=== PATIENT | male | born 1960 | race Caucasian/White ===

== ENCOUNTER 2020-06-09 06:56 | Day surgery (SDC) | payer BC ==
[2020-06-04 13:42] VITALS: BMI 40.8
[~2020-06-09 06:56] MED LIST: LACTATED RINGERS 1,000 ML IV SCH
[2020-06-09 07:37] VITALS: RESP 16; TEMP 98.4
[2020-06-09] MEDS ORDERED: LIDOCAINE 1% (10MG/ML) FOR IV START INTRADERMA ONE (07:47)
[2020-06-09 08:02] LABS: Glucose,Whole Blood 84 mg/dL (75-99)
[2020-06-09] MEDS ORDERED: PROPOFOL 10 MG/ML 20 ML VIAL IV ONE (08:08)
--- NOTE | 2020-06-09 08:27 | P.PCN ---
Date of Procedure: 06/09/20 Procedure(s) Performed: BRIEF HISTORY: Patient is a 60-year-old pleasant white male scheduled for an elective colonoscopy as a part of evaluation of prior history of colon polyps. Last colonoscopy was 5 years ago. PROCEDURE PERFORMED: Colonoscopy with snare polypectomy. PREOPERATIVE DIAGNOSIS: History of colon polyps. IV sedation per Anesthesia. PROCEDURE: After informed consent was obtained, the patient, was brought into the endoscopy unit. IV sedation was administered by Anesthesia under continuous monitoring. Digital rectal examination was normal. Initially the Olympus CF-160 flexible video colonoscope was then inserted in the rectum, gradually advanced into the cecum without any difficulty. Careful examination was performed as the scope was gradually being withdrawn. Ileocecal valve and the appendiceal orifice were visualized and appeared normal. Prep was excellent. Mucosa of the cecum, had 2 polyps measuring 5 mm and 1 cm in size both of which removed by snare polypectomy. In the ascending colon there was a 3-4 mm sessile polyp removed by snare polypectomy. In the hepatic flexure there was a 3 mm polyp removed by snare polypectomy. Rest of the ascending colon, transverse colon, descending colon, sigmoid colon, and rectum appeared normal. Retroflexion was performed in the rectum and no lesions were seen. The patient tolerated the procedure well. IMPRESSION: 1 cm and 5 mm cecal polyp status post polypectomy 3-4 mm sessile ascending colon polyp status post polypectomy 3 mm hepatic flexure polyp status post polypectomy RECOMMENDATIONS: Findings of this examination were discussed with the patient as well as his family. He was advised to follow with the biopsy results. If the biopsy shows an adenoma he can have a repeat colonoscopy in 3-5 years..
[2020-06-09 08:44] VITALS: BP 130/77; PULSE 71
== END 2020-06-09 09:05 | disposition home or self-care (01) ==
LOC: ORWHC2ENDO 06:56
PROVIDERS: ATTEND Internal Medicine Gastroenterology
DX: Z12.11 Encounter for screening for malignant neoplasm of colon (principal); D12.2 Benign neoplasm of ascending colon; D12.3 Benign neoplasm of transverse colon; G47.33 Obstructive sleep apnea (adult) (pediatric); Z99.89 Dependence on other enabling machines and devices; Z87.442 Personal history of urinary calculi; Z97.2 Presence of dental prosthetic device (complete) (partial); Z86.010 Personal history of colon polyps; Z79.899 Other long term (current) drug therapy
CPT/HCPCS: 88305; 45385; J2704

== ENCOUNTER → 2021-08-11 | Outpatient (CLI) | payer BC ==
[2021-08-11 23:02] LABS: Basophils # (A) 0.03 X 10*3/uL (0.00-0.10); Basophils % (A) 0.5 %; Eosinophils # (A) 0.15 X 10*3/uL (0.04-0.35); Eosinophils % (A) 2.4 %; HCT 46.8 % (39.6-50.0); HGB 15.4 g/dL (13.0-17.0); Immature Grans, Automated 0.5 %; Lymphocytes # (A) 2.24 X 10*3/uL (0.90-5.00); Lymphocytes % (A) 36.5 %; MCH 30.4 pg (27.0-32.0); MCHC 32.9 g/dL (32.0-37.0); MCV 92.3 fL (80.0-97.0); Mean Platelet Volume 10.4 fL (9.5-12.2); Monocytes # (A) 0.49 X 10*3/uL (0.20-1.00); NRBC Per 100 WBC 0 /100 WBCS (0.0-0.0); Neutrophils % (A) 52.1 %; Platelet Count 237 X 10*3/uL (140-440); RBC 5.07 X 10*6/uL (4.40-5.60); WBC 6.14 X 10*3/uL (4.50-10.00)
[2021-08-11 23:26] LABS: African American GFR (CKD) 112.2 (60.0-200.0); Anion Gap 10.3 mmol/L (10.00-18.00); BUN/Creat Ratio 23.45 Ratio (12.00-20.00); Blood Urea Nitrogen 18.9 mg/dL (9.0-27.0); Calcium 9.2 mg/dL (8.7-10.3); Carbon Dioxide 23.4 mmol/L (20.0-27.5); Non-African American GFR(CKD) 96.8 (60.0-200.0); Potassium 4.9 mmol/L (3.5-5.5)
== END | disposition home or self-care (01) ==
LOC: LABPAT 08:30
PROVIDERS: ATTEND Orthopaedic Surgery
DX: Z01.812 Encounter for preprocedural laboratory examination (principal); M23.92 Unspecified internal derangement of left knee
CPT/HCPCS: 36415; 80048; 85025; 93005

== ENCOUNTER → 2021-08-26 | Day surgery (SDC) | payer BC ==
[2021-08-24 11:46] VITALS: BMI 40.1
--- NOTE | 2021-08-25 09:12 | HP ---
HISTORY AND PHYSICAL CHIEF COMPLAINT: Left knee pain. 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 He notes persistent pain and swelling along with intermittent locking and giving way. He has tried medications in addition to an injection, with only partial temporary relief. He notes daily pain that limits him. PAST MEDICAL HISTORY: Significant for hypertension, eye disease, anxiety, arthritis, renal disease, diabetes. PAST SURGICAL HISTORY: Significant for eye surgery, hernia repair and appendectomy. CURRENT MEDICATIONS: Valsartan. ALLERGIES: HE DENIES DRUG ALLERGIES. REVIEW OF SYSTEMS: Sixteen-point review of systems otherwise reviewed and is noncontributory. SOCIAL HISTORY: Negative. FAMILY HISTORY: Significant for diabetes and cancers. PHYSICAL EXAMINATION: On examination, patient is approximately 5 feet 9 inches, 282 pounds of endomorphic habitus. HEENT exam is nonfocal. Neck is supple. He has painless passive motion of his left hip. Straight-leg raise is negative. Active motion of left knee: Minus 10 to 120 degrees of flexion. He has a mild effusion. He is tender about the medial joint line. Collaterals are stable. Homer is negative. Mathew's elicits medial pain. He does have an antalgic gait pattern. MRI report 07/02/2021 of the left knee shows a posterior medial meniscal tear. IMPRESSION: Left knee internal derangement with symptomatic medial meniscal tear. RECOMMENDATIONS: I talked to the patient at length regarding his condition along with treatment options. At this point he remains quite symptomatic, having pain and mechanical symptoms despite attempted conservative measures. After thorough discussion, he opts to proceed with surgery. We will plan to proceed with arthroscopic evaluation with probable partial medial meniscectomy. We will likely perform that as an outpatient procedure. Risks and benefits were discussed at length in layman's terms. MMODL / IJN: [id number] /
[~2021-08-26] MED LIST changes: +DEXAMETHASONE SOD PHOSPHATE 4 MG/ML 1 ML VIAL IV ONE; +EPINEPHrine (PF) 1 ML in SODIUM CHLORIDE 0.9% IRRIGATIO 3,000 ML IRRIGATION ONE; +HYDROcodone/APAP 5-325MG 1 EACH TAB ONE; +KETOROLAC 15 MG/ML 1 ML VIAL ONE; +LIDOCAINE 1% (10MG/ML) FOR IV START INTRADERMA PRN; +LIDOCAINE 2% INJ 20 MG/ML (2 ML VIAL) ONE; +MIDAZOLAM 2 MG/2 ML VIAL IV PRN; +MIDAZOLAM 2 MG/2 ML VIAL ONE; +ONDANSETRON 4 MG/2 ML VIAL IVP ONE; +PROPOFOL 10 MG/ML 20 ML VIAL IV ONE; +SUCCINYLCHOLINE CHLORIDE 100 MG/5 ML SYR IV ONE; +ceFAZolin 3 GM in SODIUM CHLORIDE 0.9% 100 ML IVPB PRN; +fentaNYL (PF) 50 MCG/ML 2 ML AMP ONE
[2021-08-26 07:04] LABS: Glucose,Whole Blood 104 mg/dL (75-99)
--- NOTE | 2021-08-26 08:58 | P.OP ---
Date of Procedure: 08/26/21 Preoperative Diagnosis: Left knee internal derangement Postoperative Diagnosis: Left knee posterior medial meniscal tear Procedure(s) Performed: Left knee arthroscopic partial medial meniscectomy [facility] Surgeon: Allan Mcmahon Estimated Blood Loss (ml): 10 Pathology: none sent Condition: stable Disposition: PACU Indications for Procedure: The patient's 61-year-old male presents with progressive left knee pain and mechanical symptoms despite conservative measures. A discussion of the risks and benefits of operative intervention versus continued conservative measures was made with patient. He opted proceed with surgery. Operative risks to include infection, neurovascular injury, development of blood clots, possible incomplete resolution of symptoms, possible worsening symptoms and need for subsequent procedures was discussed. Informed consent was obtained. Operative Findings: As below Description of Procedure: The patient was brought to the operating room, and after induction of general anesthesia examined the left knee. Collaterals were stable, Homer was negative, and posterior drawer was negative. The left lower extremity was prepped and draped in a normal fashion. A superior lateral portal was made through a 3 mm skin incision superior and lateral to the patella. This was used for outflow. A lateral portal was made through a 5 mm vertical skin incision lateral to the patella tendon above the joint line. Diagnostic arthroscopy was performed. On inspection of the medial compartment, a complex tear involving the posterior horn medial meniscus was noted in the white-red junction. This was not amenable to repair.. This was debrided back to stable base with straight baskets and a motorized shaver. Corresponding grade 2-3 chondral changes were noted diffusely involving the medial compartment. On inspection of the notch, the anterior cruciate ligament appeared to be intact. On inspection of the lateral compartment, no significant meniscal or cartilage pathology was noted. On inspection of the patellofemoral articulation, there is chondral fibrillation and grade 2 chondral changes however no loose chondral fragments. The gutters were clear debris. The knee was then thoroughly irrigated. The portals were closed with Steri-Strips. A sterile dressing was applied in addition to a compression stocking. The patient was awoken from general anesthesia and transferred to recovery room in good condition. Blood loss was estimated at 10 mL. No complications were incurred.
[2021-08-26] MEDS: HYDROmorphone 0.5 MG/0.5 ML SYRINGE IVP PRN ×4 (09:07→09:44)
[2021-08-26 09:08] VITALS: TEMP 97
[2021-08-26 09:23] VITALS: RESP 16
[2021-08-26 10:35] VITALS: BP 150/76; PULSE 71
== END | disposition home or self-care (01) ==
LOC: OR 06:23
PROVIDERS: ATTEND Orthopaedic Surgery
DX: M23.222 Derangement of posterior horn of medial meniscus due to old tear or injury, left knee (principal); I10 Essential (primary) hypertension; F41.9 Anxiety disorder, unspecified; N28.9 Disorder of kidney and ureter, unspecified; E11.21 Type 2 diabetes mellitus with diabetic nephropathy; M19.90 Unspecified osteoarthritis, unspecified site; Z90.49 Acquired absence of other specified parts of digestive tract; Z79.899 Other long term (current) drug therapy; Z80.9 Family history of malignant neoplasm, unspecified; Z83.3 Family history of diabetes mellitus; Z87.891 Personal history of nicotine dependence
CPT/HCPCS: 29881; J2250; J1100; J0690; J2405; J0171; J3010; J1885; J0330; J2704; J1170; J2001

== ENCOUNTER → 2023-01-17 | Outpatient (CLI) | payer BC ==
--- NOTE | 2023-01-17 12:13 | P.SLEEP ---
History of Present Illness DATE: 01/17/2023 CONSULTATION/NEW PATIENT EVALUATION HISTORY OF PRESENT ILLNESS/SLEEP-WAKE EVALUATION: 62-year-old gentleman had been evaluated in the sleep center for obstructive sleep apnea hypopnea syndrome. Patient has been diagnosed with obstructive sleep apnea about 15 years ago in another institution. She continued to use his CPAP equipment every night, but his CPAP unit is old, status post have problems, patient has multiple awakenings from sleep. SLEEP SCHEDULE: Usually sleep schedule from 2 PM until 8:30 PM on weekdays and until 6 AM on weekend. 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 FALLING ASLEEP: Usually no significant problems with falling asleep. DURING SLEEP: Patient wakes up from sleep up to 4 times while using his CPAP equipment. No history of hypnogogical hallucinations, sleep paralysis, or cataplexy. Positive history of restless leg symptoms DURING THE DAY/WAKE STATE: In the morning patient wake up tired, has problems with memory and concentration. [place] sleepiness scale is and extremely high range of 20. Patient may take up to 2 naps during the day. PAST MEDICAL HISTORY: Hypertension, Arthritis, history of diabetes mellitus in the past. PAST SURGICAL HISTORY: Appendectomy. MEDICATIONS: Valsartan/hydrochlorothiazide 160-25 mg once a day, sulfasalazine 500 mg once a day, vitamin B12. SOCIAL HISTORY: Positive for smoking in the past for about a 2 pack years, alcohol consumption occasional. FAMILY HISTORY: Hypertension, heart problems, stroke. REVIEW OF SYSTEMS: Multiple awakenings from sleep and sleepiness during the day. No fevers. No double vision. No recent chest pain. No shortness of breath. No abdominal pain. No bleeding episodes. No blood in urine. No seizure episodes. PHYSICAL EXAMINATION: GENERAL: A pleasant patient without any distress. VITAL SIGNS: BP 149/90, HR 79, RR 16, weight 280.0 pounds, height 5 foot 8-2/4 inches, body mass index 41.5. HEENT: PERRLA, EOMI. Evaluation of oropharynx showed tongue protrudes midline, low position of soft palate Mallampati 4. NECK: Supple. No JVD. Thyroid is not palpable. 19.5 inches in circumference. LUNGS: Clear to percussion and to auscultation. Good air exchange. No wheezing or rhonchi. HEART: S1, S2 regular. No murmurs, gallops or rubs. ABDOMEN: Soft and nontender. Bowel sounds are present. No organomegaly appreciated. EXTREMITIES: No clubbing or cyanosis. 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 Cranial nerves 2 to 7 intact. There is no fasciculation or atrophy noted. No focal deficits observed. ASSESSMENT: 1. Multiple awakenings from sleep, snoring, extremely low position of soft palate Mallampati 4, wide neck, sleepiness. History of obstructive sleep apnea. Results of previous sleep studies are not available. Obstructive sleep apnea hypopnea syndrome. 2. Obesity, BMI 41.5. 3. Restless leg symptoms. 4. Hypertension. 5 arthritis. 6 . Status post appendectomy. PLAN: 1. Polysomnography for evaluation of patient's breathing during sleep with the present time. 2. CPAP/BiPAP titration if sleep study confirms obstructive sleep apnea- hypopnea syndrome. 3. Preferable position during sleep on the side. 4. No driving if patient feels any sleepiness. Patient is aware of civil and criminal liability for unsafe driving. 5. Sleep hygiene with regular sleep time for at least 7.5-8 hours. 6. Watching and losing weight. Thank you very much for referring this patient for consultation. Sincerely, Kirill Whyte MD, PhD, FAASM. Diplomat of [place] [employer], Sleep Medicine Board by [place] [employer] [place] [employer] Steam Cleaning Machine Operator of [facility] [place] Past Medical History Past Medical History: Hypertension, Sleep Apnea/CPAP/BIPAP Additional Past Medical History / Comment(s): kidney stones,hx polyps, carpal tunnel L hand. States does not have diabetes @ this time and is not taking any diabetic medicine. History of Any Multi-Drug Resistant Organisms: None Reported Past Surgical History: Appendectomy, Hernia Repair Additional Past Surgical History / Comment(s): cyst removed from left eye, Lithotripsy. colonscopy Past Anesthesia/Blood Transfusion Reactions: No Reported Reaction Smoking Status: Former smoker - Past Family History Mother Family Medical History: No Reported History Medications and Allergies Home Medications Medication Instructions Recorded Confirmed Type Valsartan/Hydrochlorothiazide 1 each PO 2200 08/25/15 08/24/21 History [Diovan Hct 160-25 mg Tablet] Ibuprofen 200 mg PO Q8H PRN 08/24/21 08/26/21 History HYDROcodone/APAP 5-325MG [Dunbar 1 tab PO Q6HR PRN 6 Days #21 tab 08/26/21 Rx 5-325] Allergies Allergy/AdvReac Type Severity Reaction Status Date / Time No Known Allergies Allergy Verified 08/24/21 11:36 Sleep Note - Sleep Note Sleep Note: Temperature: Pulse Rate: Respiratory Rate: Blood Pressure: SpO2: Height: Weight: BMI: Neck Circumference:
== END ==
LOC: 3 N SLEEP 11:06
PROVIDERS: ATTEND Internal Medicine
DX: G47.33 Obstructive sleep apnea (adult) (pediatric) (principal); E66.9 Obesity, unspecified; G25.81 Restless legs syndrome; I10 Essential (primary) hypertension; M19.90 Unspecified osteoarthritis, unspecified site; Z90.49 Acquired absence of other specified parts of digestive tract; Z68.41 Body mass index [BMI] 40.0-44.9, adult; Z79.899 Other long term (current) drug therapy; Z87.891 Personal history of nicotine dependence
CPT/HCPCS: 99211

== ENCOUNTER 2023-03-06 19:17 | Outpatient (CLI) | payer BC ==
--- NOTE | 2023-03-07 12:38 | P.PCN ---
Description of Procedure: POLYSOMNOGRAPHY REPORT PROCEDURE(S)/DATE(S): Polysomnography 03/06/2023 CLINICAL: Patient has been seen in the sleep center for evaluation of obstructive sleep apnea-hypopnea syndrome. Please see my consultation. Sleep study has been done for evaluation of patient breathing during the sleep. PROCEDURE: The standard montage for clinical polysomnography included the electroencephalogram, the electrooculogram, the mentalis surface electromyography and Lead II cardiography. The respiratory battery consisted of measurements of nasal/buccal air flow, pressure transducer measurements from nose, thoracic and/or abdominal effort and intercostal surface electromyography. Video monitoring has been done to check for any parasomnia events. Nocturnal oxyhemoglobin saturations were obtained by finger oximetry. Step-lemons titration with positive airway pressure was utilized to control the respiratory events, if necessary. RESULTS: During the diagnostic sleep study sleep efficiency was slightly decreased to 84.2 %. Latency to sleep onset was short 6.5 min. Sleep architecture showed stage NI was slightly increased to 9.2 %, Delta sleep was slightly short 3.2 %, REM sleep was decreased to 11.0 %. Respiratory channel showed 130 obstructive apneas, 76 mixed apneas, 5 central apneas, 18 hypopneas with lowest oxygen level 75 %. Total apnea hypopnea index was 35.5. Heart rate was in the range between 51 and 60, average 54. EMG showed 52.8 periodic limb movements per hour with 0.9 micro-arousals per hour. IMPRESSIONS: 1. Severe obstructive sleep apnea hypopnea syndrome. 2. Significant periodic limb movements have been documented. Please see other impressions from consultation PLAN: 1. The patient will have PAP titration for correction of respiratory abnormalities during the sleep. 2. Losing weight program. 3. Sleep hygiene with regular time in bed for at least 7-1/2 hours. 4. No driving if feeling sleepiness. 5. Please check iron profile including ferritin level. Low level of iron may increase the risk for periodic limb movements. Thank you very much for allowing me to participate in the management of your patient. Sincerely, Kirill Whyte MD, PhD, FAASM. Diplomat of [place] [employer], Sleep Medicine Board by [place] [employer] Network Systems Engineer of [facility] [place]
== END 2023-03-07 11:59 | disposition home or self-care (01) ==
LOC: 3 N SLEEP 19:17
PROVIDERS: ATTEND Internal Medicine
DX: G47.33 Obstructive sleep apnea (adult) (pediatric) (principal); G47.61 Periodic limb movement disorder; Z99.89 Dependence on other enabling machines and devices; Z87.891 Personal history of nicotine dependence
CPT/HCPCS: 95810

== ENCOUNTER 2023-12-14 08:49 | Day surgery (SDC) | payer BC ==
[2023-12-12 17:57] VITALS: BMI 42.3
[~2023-12-14 08:49] MED LIST changes: -DEXAMETHASONE SOD PHOSPHATE 4 MG/ML 1 ML VIAL IV ONE; -EPINEPHrine (PF) 1 ML in SODIUM CHLORIDE 0.9% IRRIGATIO 3,000 ML IRRIGATION ONE; -HYDROcodone/APAP 5-325MG 1 EACH TAB ONE; -KETOROLAC 15 MG/ML 1 ML VIAL ONE; -LACTATED RINGERS 1,000 ML IV SCH; -LIDOCAINE 2% INJ 20 MG/ML (2 ML VIAL) ONE; -MIDAZOLAM 2 MG/2 ML VIAL IV PRN; -MIDAZOLAM 2 MG/2 ML VIAL ONE; -ONDANSETRON 4 MG/2 ML VIAL IVP ONE; -PROPOFOL 10 MG/ML 20 ML VIAL IV ONE; -SUCCINYLCHOLINE CHLORIDE 100 MG/5 ML SYR IV ONE; -ceFAZolin 3 GM in SODIUM CHLORIDE 0.9% 100 ML IVPB PRN; -fentaNYL (PF) 50 MCG/ML 2 ML AMP ONE
[2023-12-14] MEDS: IV FLUID CONTINUATION 1,000 ML IV ONE (09:15)
[2023-12-14 09:23] VITALS: TEMP 97.8
[2023-12-14] MEDS: LACTATED RINGERS 1,000 ML IV SCH (09:26)
[2023-12-14] MEDS ORDERED: LIDOCAINE 1% INJ 10MG/ML (20 ML MDV) ONE (10:15)
[2023-12-14] MEDS ORDERED: PROPOFOL 10 MG/ML 20 ML VIAL IV ONE (10:15)
--- NOTE | 2023-12-14 10:33 | P.PCN ---
Date of Procedure: 12/14/23 Procedure(s) Performed: BRIEF HISTORY: Patient is a 63-year-old pleasant white male scheduled for an elective colonoscopy as a part of evaluation for history of colon polyps. Last colonoscopy was 3 years ago and was noted to have tubular adenoma. PROCEDURE PERFORMED: Colonoscopy with snare polypectomy. PREOPERATIVE DIAGNOSIS: History of colon polyps. IV sedation per Anesthesia. PROCEDURE: After informed consent was obtained, the patient, was brought into the endoscopy unit. IV sedation was administered by Anesthesia under continuous monitoring. Digital rectal examination was normal. Initially the Olympus CF-160 flexible video colonoscope was then inserted in the rectum, gradually advanced i nto the cecum without any difficulty. Careful examination was performed as the scope was gradually being withdrawn. Ileocecal valve and the appendiceal orifice were visualized and appeared normal. Prep was excellent. Mucosa of the cecum, ascending colon, transverse colon were normal. The descending colon there was a 6 mm polyp that was removed by cold snare polypectomy. Rest of the, descending colon, sigmoid colon, and rectum appeared normal. Retroflexion was performed in the rectum and no lesions were seen. The patient tolerated the procedure well. IMPRESSION: 6 mm descending colon polyp status post cold snare polypectomy Rest of the colon appeared normal RECOMMENDATIONS: Findings of this examination were discussed with the patient as well as his family. He was advised to follow the biopsy results. If the biopsy reveals adenoma he can have repeat colonoscopy in 5 years.
[2023-12-14 10:57] VITALS: BP 102/69; PULSE 70; RESP 17
== END 2023-12-14 11:09 | disposition home or self-care (01) ==
LOC: ORWHC2ENDO 08:49
PROVIDERS: ATTEND Internal Medicine Gastroenterology
DX: D12.7 Benign neoplasm of rectosigmoid junction
CPT/HCPCS: 45385; 88305

== ENCOUNTER 2024-04-08 09:49 | Inpatient (IN) | payer BC ==
[2024-04-08] MEDS ORDERED: HEPARIN SODIUM 1,000 UN/ML (10ML VL) IV PRN (10:22)
--- NOTE | 2024-04-08 10:22 | ED ---
General Adult HPI - General Stated complaint: Chest pain Time Seen by Provider: 04/08/24 09:51 Source: patient Mode of arrival: ambulatory Limitations: no limitations - History of Present Illness Initial comments: Dictation was produced using [employer] dictation software. please excuse any grammatical, word or spelling errors. Chief Complaint: 64-year-old male sent from cardiology office for failed stress test History of Present Illness: Patient 64-year-old male for the last 3 to 4 months he has been having exertional chest pain and exertional dyspnea. Apparently he has extensive family history of heart attacks states that his dad in his 50s after heart attack. States his brother also has cardiac conditions. Patient was referred to cardiology by his primary care doctor. Stress test was today allegedly he had failed. patient denies any symptoms at this time. The ROS documented in this emergency department record has been reviewed and confirmed by me. Those systems with pertinent positive or negative responses have been documented in the HPI. All other systems are other negative and/or noncontributory. - Related Data Home Medications Medication Instructions Recorded Confirmed Valsartan/Hydrochlorothiazide 1 each PO 2200 08/25/14 12/14/23 [Diovan Hct 160-25 mg Tablet] Omeprazole 20 mg PO DAILY PRN 12/12/23 12/14/23 sulfADIAZINE 500 mg PO BID 12/12/23 12/14/23 Allergies Allergy/AdvReac Type Severity Reaction Status Date / Time No Known Allergies Allergy Verified 04/08/24 09:58 Review of Systems ROS Statement: Those systems with pertinent positive or pertinent negative responses have been documented in the HPI. ROS Other: All systems not noted in ROS Statement are negative. Past Medical History Past Medical History: GERD/Reflux, Hypertension, Sleep Apnea/CPAP/BIPAP Additional Past Medical History / Comment(s): kidney stones,hx polyps, carpal tunnel L hand. NO LONGER DIABETIC History of Any Multi-Drug Resistant Organisms: None Reported Past Surgical History: Appendectomy, Hernia Repair, Orthopedic Surgery Additional Past Surgical History / Comment(s): cyst removed from left eye, Lithotripsy. colonoscopy. LT KNEE SX Past Anesthesia/Blood Transfusion Reactions: No Reported Reaction Past Psychological History: No Psychological Hx Reported Smoking Status: Former smoker Past Alcohol Use History: None Reported Past Drug Use History: None Reported - Past Family History Mother Family Medical History: No Reported History General Exam - General Exam Comments Initial Comments: PHYSICAL EXAM: General Impression: Alert and oriented x3, not in acute distress HEENT: Normocephalic atraumatic, extra-ocular movements intact, pupils equal and reactive to light bilaterally, mucous membranes moist. Cardiovascular: Heart regular rate and rhythm Chest: Able to complete full sentences, no retractions, no tachypnea Abdomen: abdomen soft, non-tender, non-distended, no organomegaly Musculoskeletal: Pulses present and equal in all extremities, no peripheral edema Motor: no focal deficits noted Neurological: CN II-XII grossly intact, no focal motor or sensory deficits noted Skin: Intact with no visualized rashes Psych: Normal affect and mood Limitations: no limitations Course Vital Signs 04/08/24 09:54 Temperature 98.8 F Pulse Rate 97 Respiratory 18 Rate Blood Pressure 163/90 O2 Sat by Pulse 98 Oximetry EKG Findings - EKG Comments: EKG Findings:: My EKG interpretation: Ventricular rate 94, sinus rhythm,. Normal 144, QS 113, QTc 420. No VA prolongation, no QTC prolongation, no ST or T-wave changes noted. Overall, this EKG is unremarkable Medical Decision Making - Medical Decision Making Was pt. sent in by a medical professional or institution (, PA, PROJECT MANAGEMENT DIRECTOR, urgent care, hospital, or senior care...) When possible be specific @ -No Did you speak to anyone other than the patient for history (EMS, parent, family, police, friend...)? What history was obtained from this source @ -Some history obtained from Dr. Barnett who called prior to patient's arrival states that patient did feel the stress test Did you review nursing and triage notes (agree or disagree)? Why? @ -I reviewed and agree with nursing and triage notes Were old charts reviewed (outside hosp., previous admission, EMS record, old EKG, old radiological studies, urgent care reports/EKG's, senior care records)? Report findings @ -No old charts were reviewed Differential Diagnosis (chest pain, altered mental status, abdominal pain women, abdominal pain men, vaginal bleeding, musculoskeletal, weakness, fever, dyspnea, syncope, headache, dizziness, GI bleed, back pain, seizure, CVA, palpatations, mental health)? @ -Differential Chest Pain: Stable Angina, Unstable Angina, STEMI, NSTEMI Aortic Dissection, Pneumothorax, Musculoskeletal, Esophageal Spasm GERD, Cholecystitis, Pancreatitis, Zoster, this is not meant to be an all-inclusive list. EKG interpreted by me (3pts min.). @ -See above X-rays interpreted by me (1pt min.). @ - CT interpreted by me (1pt min.). @ -None done U/S interpreted by me (1pt. min.). @ -None done What testing was considered but not performed or refused? (CT, X-rays, U/S, labs)? Why? @ -None What meds were considered but not given or refused? Why? @ -None Was smoking cessation discussed for >3mins.? @ -No Were there social determinants of health that impacted care today? How? (Homelessness, low income, unemployed, alcoholism, drug addiction, transportation, low edu. Level, literacy, decrease access to med. care, group home, rehab)? @ -No Was there de-escalation of care discussed even if they declined (Discuss DNR or withdrawal of care, Hospice)? DNR status @ -No What co-morbidities impacted this encounter? (DM, HTN, Smoking, COPD, CAD, Cancer, CVA, ARF, Chemo, Hep., AIDS, mental health diagnosis, sleep apnea, morbid obesity)? @ -Obesity, family history Was patient admitted / discharged? Hospital course, mention meds given and route, prescriptions, significant lab abnormalities, going to OR and other pertinent info. @ -64-year-old male presents emergency department from cardiology office for failed outpatient stress test. Vital signs stable. Patient well-appearing at the bedside. Denies any symptoms currently. I did speak with grid maker states that he was sending the patient. Plan is for cardiac catheterization later today or first thing in the morning tomorrow. Did you discuss the management of the patient with other professionals (professionals i.e. , PA, PROJECT MANAGEMENT DIRECTOR, lab, RT, psych nurse, social economist, radiologic technology teacher, teacher, activities officer, case maker)? Give summary @ -No Was critical care preformed (if so, how long)? @ -Yes, 33 minutes for management of acute coronary syndrome Undiagnosed new problem with uncertain prognosis? @ -No Drug Therapy requiring intensive monitoring for toxicity (Heparin, Nitro, Insulin, Cardizem)? @ -No Were any procedures done? @ -No Diagnosis/symptom? Acute, or Chronic, or Acute on Chronic? Uncomplicated (without systemic symptoms) or Complicated (systemic symptoms)? @ -Acute coronary syndrome Side effects of treatment? @ -No Exacerbation, Progression, or Severe Exacerbation? @ -No Poses a threat to life or bodily function? How? (Chest pain, [place], [place], pneumonia, PE, COPD, DKA, ARF, appy, cholecystitis, CVA, Diverticulitis, Homicidal, Suicidal, threat to staff... and all critical care pts) @ -yes Disposition Clinical Impression: ACS (acute coronary syndrome) Disposition: ADMITTED IP TO THIS HOSP Condition: Fair Referrals: Pawan Sood MD [Primary Care Provider] - 1-2 days Decision Time: 10:22
[2024-04-08 10:23] LABS: Basophils % (A) 1 %; Eosinophils # (A) 0.1 k/uL (0-0.7); Eosinophils % (A) 1 %; HCT 44.3 % (39.0-53.0); HGB 15.1 gm/dL (13.0-17.5); Lymphocytes # (A) 1.6 k/uL (1.0-4.8); Lymphocytes % (A) 28 %; MCH 30.5 pg (25.0-35.0); MCV 89.8 fL (80.0-100.0); Mean Platelet Volume 7.3; Monocytes # (A) 0.4 k/uL (0-1.0); Monocytes % (A) 6 %; Neutrophils # (A) 3.6 k/uL (1.3-7.7); Neutrophils % (A) 62 %; Platelet Count 238 k/uL (150-450); RBC 4.94 m/uL (4.30-5.90); RDW 12.5 % (11.5-15.5); WBC 5.9 k/uL (3.8-10.6)
[2024-04-08] MEDS ORDERED: NITROGLYCERIN SL TABS 0.4 MG TAB SUBLINGUAL PRN ×2 (10:23→11:26)
[2024-04-08 10:33] LABS: Partial Thromboplastin Time 22.1 sec (22.0-30.0); Prothrombin Time 11.1 sec (10.0-12.5)
[2024-04-08 10:38] LABS: ALT 31 U/L (4-49); AST 25 U/L (17-59); African American GFR (CKD) >90 (>60 ml/min/1.73 sqM); Albumin 4.1 g/dL (3.5-5.0); Alkaline Phosphatase 79 U/L (38-126); Anion Gap 9 mmol/L; Blood Urea Nitrogen 20 mg/dL (9-20); Carbon Dioxide 25 mmol/L (22-30); Chloride 104 mmol/L (98-107); Glucose 146 mg/dL (74-99); Non-African American GFR(CKD) >90 (>60 ml/min/1.73 sqM); Potassium 4.2 mmol/L (3.5-5.1); Sodium 138 mmol/L (137-145); Total Bilirubin 0.7 mg/dL (0.2-1.3); Total Protein 6.9 g/dL (6.3-8.2)
--- NOTE | 2024-04-08 10:41 | XR ---
EXAMINATION TYPE: XR chest 2V DATE OF EXAM: 04/08/2024 COMPARISON: NONE CLINICAL INDICATION: Male, 64 years old with history of Chest Pain; , TECHNIQUE: XR chest 2V views of the chest. FINDINGS: The lungs are clear and there is no pneumothorax, pleural effusion, or focal pneumonia. Heart size normal and no overt failure. Degenerative change of the spine.. IMPRESSION: 1. No acute process. [facility], , 04/08/2024 10:38 AM
[2024-04-08] MEDS: ASPIRIN 81 MG PO STA (11:14)
[2024-04-08] MEDS ORDERED: ALPRAZolam 0.5 MG TAB PO PRN (11:26)
[2024-04-08] MEDS ORDERED: ALPRAZolam 0.25 MG TAB PO PRN (11:26)
--- NOTE | 2024-04-08 11:40 | P.HPIM ---
History of Present Illness H&P Date: 04/08/24 History of Presenting Illness: Patient is a pleasant 64-year-old male with a past medical history of hypertension, GERD, rheumatoid arthritis, obstructive sleep apnea. Presented to the emergency department as sent by denture processor, Dr. Barnett secondary to patient's reports of chest pain and exertional dyspnea and failing outpatient stress test this morning. Patient was undergoing outpatient stress test secondary to intermittent exertional shortness of breath and chest pain ongoing over the past 4 months. Patient reports significant family history of cardiac disease including having a father who in his 50s from heart attack and brother whom underwent bypass surgery. Patient reports pain stays to midsternal chest accompanied by shortness of breath with any exertion, but improves/resolves with rest. He denies having any headache, lightheadedness, dizziness, cough or congestion, palpitations, nausea, vomiting, or experiencing any numbness/tingling/weakness/swelling in his extremities. Upon arrival to our facility, patient underwent evaluation in the emergency department. Vital signs upon arrival show blood pressure 163/90, heart rate 97, respiratory rate 18, temp 98.8 F, and SpO2 of 98% on room air. EKG was completed showing normal sinus rhythm at 94 bpm. Completed negative for acute cardiopulmonary process. Labs completed and reviewed. CBC unremarkable. Coagulation profile normal findings. BMP normal findings. Blood glucose 146. Magnesium 2.0. Liver profile unremarkable. Troponin was negative at less than 0.012. TSH 2.830. Patient was started on heparin infusion for treatment of unstable angina and admitted under our services with consultation to cardiology. Review of systems: Pertinent positives and negatives as discussed in HPI, a complete review of systems was performed and all other systems are negative. Physical exam: Vital signs reviewed and stable. General: Nontoxic, no distress and appears stated age. Derm: Skin warm and dry, normal coloration for ethnicity. Head: Atraumatic, normocephalic and symmetric. Eyes: EOM's intact, no lid lag, and anicteric sclera Mouth: no lip lesions, mucus membranes moist Cardiovascular: regular rate and rhythm with normal S1S2, no murmur, positive posterior tibial pulses bilaterally, and cap refill < 2 seconds. Lungs: Respirations even, regular, and unlabored on room air. Lungs CTA bilaterally, no rhonchi, no rales, no wheezing, and no accessory muscle usage. Abdominal: soft, nontender to palpation, no guarding, no appreciable organomegaly Ext: ROM intact. No gross muscle atrophy, no edema, no contractures Neuro: Speech clear, face symmetrical and CN II-XII grossly intact with no noted focal neuro deficits Psych: Alert and oriented to person, place, time, and situation. Appropriate and pleasant affect. Assessment and Plan of Care: Unstable angina Exertional chest pain and shortness of breath, secondary to above Hypertension -Cardiology consulted, appreciate recommendations -Telemetry monitoring -Continue heparin infusion with close monitoring of PTT for goal therapeutic range of 45 to 79 seconds. -Patient received aspirin 324 mg p.o. x 1 dose in the emergency department and to continue aspirin 81 mg daily, atorvastatin 80 mg nightly, hydrochlorothiazide 25 mg daily, and valsartan 160 mg daily. -Lipid profile globin A1c with a.m. labs. -Echocardiogram to be completed. GERD -Continue Protonix 40 mg daily. Rheumatoid arthritis -Hold sulfasalazine pending further recommendations from cardiology. Data and imaging reviewed: -As stated above in HPI. CODE STATUS: Full code DVT prophylaxis: Heparin infusion Anticipated discharge date: Pending clinical course Anticipated discharge place: Home Patient was seen independently by Nurse Practitioner. This document was prepared using [employer] dictation software. Please allow for errors in spring coverer while rare they do occur. Yasmani Elkins NP rendered care for this patient independently, reviewed the findings and plan as documented in the note above and agree with plan. I did not physically speak with or examine the patient on this date. Past Medical History Past Medical History: GERD/Reflux, Hypertension, Sleep Apnea/CPAP/BIPAP Additional Past Medical History / Comment(s): kidney stones,hx polyps, carpal tunnel L hand. NO LONGER DIABETIC History of Any Multi-Drug Resistant Organisms: None Reported Past Surgical History: Appendectomy, Hernia Repair, Orthopedic Surgery Additional Past Surgical History / Comment(s): cyst removed from left eye, Lithotripsy. colonoscopy. LT KNEE SX Past Anesthesia/Blood Transfusion Reactions: No Reported Reaction Past Psychological History: No Psychological Hx Reported Smoking Status: Former smoker Past Alcohol Use History: None Reported Past Drug Use History: None Reported - Past Family History Mother Family Medical History: No Reported History Medications and Allergies Home Medications Medication Instructions Recorded Confirmed Type Valsartan/Hydrochlorothiazide 1 tab PO DAILY 08/25/14 04/08/24 History [Diovan Hct 160-25 mg Tablet] Omeprazole 20 mg PO DAILY 12/12/23 04/08/24 History sulfaSALAzine [sulfaSALAzine Dr] 500 mg PO BID 04/08/24 04/08/24 History Allergies Allergy/AdvReac Type Severity Reaction Status Date / Time No Known Allergies Allergy Verified 04/08/24 10:57 Physical Exam Vitals: Vital Signs Temp Pulse Resp BP Pulse Ox 04/08/24 09:54 98.8 F 97 18 163/90 98 Intake and Output 04/07/24 04/08/24 04/08/24 22:59 06:59 14:59 Other: Weight 136.985 kg Results CBC & Chem 7: 04/08/24 10:16 04/08/24 10:16 Labs: Abnormal Lab Results - Last 24 Hours (Table) 04/08/24 Range/Units 10:16 Glucose 146 H (74-99) mg/dL
[2024-04-08] MEDS: HEPARIN SOD,PORK IN 0.45% NACL 25,000 UNIT in 0.45% NACL 1 250ML.BAG IV SCH (11:41)
[2024-04-08] MEDS: HEPARIN SODIUM 1,000 UN/ML (10ML VL) IV ONE ×2 (11:50→14:31)
[2024-04-08] MEDS: ASPIRIN 325 MG TAB PO STA (12:00)
--- NOTE | 2024-04-08 12:42 | P.CRDCN ---
History of Present Illness Consult date: 04/08/24 Consult reason: chest pain History of present illness: This is a 64-year-old male with past medical history of hypertension, GERD, obstructive sleep apnea on CPAP. Patient denies previous cardiac history and does not follow with a associate spa director. Patient came into the hospital as an outpatient for Cardiolite stress test which came back abnormal. Patient did experience chest pain during testing which worsened as the test progressed. Chest pain lessens when he was off the treadmill. He states the chest pain has been going on for the past 5 to 6 months and was much more severe during the holidays. He states his PCP set him up for a stress test and also to follow-up with the pulmonary doctor. Due to abnormal stress test, patient was sent to the emergency center for further evaluation. Discussed with patient option of cardiac catheterization which she is willing to move forward with today. Blood pressure 163/90, heart rate 97, pulse ox 98% on room air. Patient has remote history of tobacco use. -EKG: Sinus rhythm with nonspecific changes. -Chest x-ray: No acute process -Laboratory studies: CBC, INR, electrolytes and renal function are normal. Troponin negative x 1. Liver function test are normal. -Home cardiac medications: Valsartan/hydrochlorothiazide 160-25 mg daily. Review Of Systems: At the time of my exam: CONSTITUTIONAL: Denies fever or chills. HEENT: Denies blurred vision, vision changes, or eye pain. Denies hemoptysis CARDIOVASCULAR: Reports chest pain. Reports chest pain with exertion. Denies orthopnea. Denies PND. Denies palpitations RESPIRATORY: Denies shortness of breath. GASTROINTESTINAL: Denies abdominal pain. Denies nausea or vomiting. HEMATOLOGIC: Denies bleeding disorders. GENITOURINARY: Denies any blood in urine. SKIN: Denies puritis. Denies rash. Physical examination: Gen: This is a 64-year-old male in no acute distress VS: reviewed HEENT: Head is atraumatic, normocephalic. Pupils equal, round. Sclerae is anicteric. NECK: Supple. No JVD. LUNGS: Clear to auscultation. No wheezes or rhonchi. No intercostal retractions. HEART: Regular rate and rhythm. No murmur. ABDOMEN: Soft No tenderness. EXTREMITIES: No pedal edema. No calf tenderness. NEUROLOGICAL: Patient is awake, alert and oriented x3. Assessment: Chest pain with abnormal stress test History of hypertension Morbid obesity with BMI of 43 Plan: Resume patient's home cardiac medications Start patient on aspirin 81 mg daily, atorvastatin 80 mg daily Lipid panel, A1c, TSH Schedule patient for cardiac catheterization this afternoon with Dr. Barnett Obtain 2-D echocardiogram and Doppler study to assess cardiac structure and function Further recommendations to follow based upon clinical course Thank you kindly for this consultation. Nurse practitioner note has been reviewed, I agree with documented findings and plan of care. Patient was seen and examined. Past Medical History Past Medical History: GERD/Reflux, Hypertension, Sleep Apnea/CPAP/BIPAP Additional Past Medical History / Comment(s): kidney stones,hx polyps, carpal tunnel L hand. NO LONGER DIABETIC History of Any Multi-Drug Resistant Organisms: None Reported Past Surgical History: Appendectomy, Hernia Repair, Orthopedic Surgery Additional Past Surgical History / Comment(s): cyst removed from left eye, Lithotripsy. colonoscopy. LT KNEE SX Past Anesthesia/Blood Transfusion Reactions: No Reported Reaction Past Psychological History: No Psychological Hx Reported Smoking Status: Former smoker Past Alcohol Use History: None Reported Past Drug Use History: None Reported - Past Family History Mother Family Medical History: No Reported History Medications and Allergies Home Medications Medication Instructions Recorded Confirmed Type Valsartan/Hydrochlorothiazide 1 tab PO DAILY 08/25/14 04/08/24 History [Diovan Hct 160-25 mg Tablet] Omeprazole 20 mg PO DAILY 12/12/23 04/08/24 History sulfaSALAzine [sulfaSALAzine Dr] 500 mg PO BID 04/08/24 04/08/24 History Allergies Allergy/AdvReac Type Severity Reaction Status Date / Time No Known Allergies Allergy Verified 04/08/24 10:57 Physical Exam Vitals: Vital Signs Temp Pulse Resp BP Pulse Ox 04/08/24 09:54 98.8 F 97 18 163/90 98 Intake and Output 04/07/24 04/08/24 04/08/24 22:59 06:59 14:59 Other: Weight 136.985 kg Results 04/08/24 10:16 04/08/24 10:16 Cardiac Enzymes 04/08/24 04/08/24 Range/Units 10:16 10:16 AST 25 (17-59) U/L Troponin I <0.012 (0.000-0.034) ng/mL Coagulation 04/08/24 Range/Units 10:16 PT 11.1 (10.0-12.5) sec APTT 22.1 (22.0-30.0) sec CBC 04/08/24 Range/Units 10:16 WBC 5.9 (3.8-10.6) k/uL RBC 4.94 (4.30-5.90) m/uL Hgb 15.1 (13.0-17.5) gm/dL Hct 44.3 (39.0-53.0) % Plt Count 238 (150-450) k/uL Comprehensive Metabolic Panel 04/08/24 Range/Units 10:16 Sodium 138 (137-145) mmol/L Potassium 4.2 (3.5-5.1) mmol/L Chloride 104 (98-107) mmol/L Carbon Dioxide 25 (22-30) mmol/L BUN 20 (9-20) mg/dL Creatinine 0.72 (0.66-1.25) mg/dL Glucose 146 H (74-99) mg/dL Calcium 9.0 (8.4-10.2) mg/dL AST 25 (17-59) U/L ALT 31 (4-49) U/L Alkaline Phosphatase 79 (38-126) U/L Total Protein 6.9 (6.3-8.2) g/dL Albumin 4.1 (3.5-5.0) g/dL Current Medications Generic Name Dose Route Start Last Admin Trade Name Freq PRN Reason Stop Dose Admin Aspirin 325 mg 04/09/24 09:00 Aspirin 325 Mg Tab PO DAILY [facility] Heparin Sodium (Porcine) 0 unit 04/08/24 10:22 Heparin Sodium 1,000 Un/Ml (10ml Vl) IV PER PROTOCOL PRN Low PTT Protocol Heparin Sodium/Sodium Chloride 250 mls @ 10 mls/hr 04/08/24 10:30 25,000 unit/ Sodium Chloride IV .Q24H [facility] Protocol 7.3 UNITS/KG/HR Nitroglycerin 0.4 mg 04/08/24 10:23 Nitroglycerin Sl Tabs 0.4 Mg Tab SUBLINGUAL Q5M PRN Chest Pain Intake and Output 04/07/24 04/08/24 04/08/24 22:59 06:59 14:59 Other: Weight 136.985 kg Patient Weight 04/09/24 06:59 Weight 136.985 kg 04/08/24 10:16 04/08/24 10:16
[2024-04-08] MEDS: ATORVASTATIN 80 MG TAB PO STA (13:10)
[2024-04-08] MEDS: SODIUM CHLORIDE 0.9% 1,000 ML IV ONE (14:11)
[2024-04-08] MEDS: HEPARIN SODIUM,PORCINE 10,000 UNIT in SODIUM CHLORIDE 0.9% 1,000 ML IRRIGATION ONE (14:11)
[2024-04-08] MEDS: HEPARIN SODIUM,PORCINE (1 ML) 2,500 UNIT in SODIUM CHLORIDE 0.9% 250 ML IRRIGATION ONE (14:12)
[2024-04-08] MEDS: LIDOCAINE 1% INJ 10MG/ML (20 ML MDV) SQ ONE (14:27)
[2024-04-08] MEDS: fentaNYL (PF) 50 MCG/ML 2 ML AMP IVP ONE (14:27)
[2024-04-08] MEDS: MIDAZOLAM 2 MG/2 ML VIAL IVP ONE (14:27)
[2024-04-08] MEDS: VERAPAMIL SYRINGE (5 MG/10 ML) INTRAARTER ONE (14:29)
[2024-04-08] MEDS: IOPAMIDOL-370 100ML BTL INJ ONE ×2 (14:56→15:25)
--- NOTE | 2024-04-08 16:17 | P.CARDCATH ---
Description of Procedure: PROCEDURES PERFORMED: Left heart catheterization, bilateral coronary angiography, ultrasound guided arterial access, iFR RCA, circumflex, LAD, IVUS LAD INDICATION: Angina, abnormal stress test CONSENT:I have discussed the risks, benefits and alternative therapies for the above-mentioned procedure and for both sedation/analgesia as well as necessary blood product administration, if indicated, as they pertain to this patient. The patient has indicated understanding and acceptance of the risks and procedures discussed. PROCEDURE: After the risks, benefits and alternatives of the above mentioned procedure explained in detail with the patient, informed consent was obtained. Patient was taken to the catheterization lab and prepped and draped in usual fashion. Ultrasound guidance was used to assess for arterial access. 1% lidocaine was used to anesthetize the right radial artery. A 6-[place] sheath was placed in the right radial artery using modified Seldinger technique and ultrasound guidance. Left coronary angiography was performed with a 5-[place] JL 3.5 catheter and right coronary angiography was performed with a 5-[place] FR5 catheter in various views. A 5-[place] FR5 catheter was inserted into the left ventricle and pressure measurements were obtained. Patient's symptoms have been fairly classic for angina and stress test with read-out of apical ischemia however additional what appears to be inferior inferolateral reversibility noted on personal review. On reviewing angiography however no major obstructive coronary artery disease. Possibility of smaller vessel with some poor image quality secondary to body habitus. Therefore decision made to assess functional assessment with iFR (RFR). Heparin was given. Using a 6-[place] AL 0.75 guide, 0.014 pressure wire was advanced to the proximal RCA and then placed in the superior branch and inferior branch of the PLV branch as well as PDA and these were all noted to be normal at 1.0, 0.99, 0.94. Next using a 6-[place] CLS 3.5 guide which was somewhat too short the left main was engaged in the pressure wire was advanced and normalized. It was then advanced into the OM1 branch and was normal at 0.96, the small AV lolis branch was abnormal at 0.88. The proximal diagonal branch was normal at 0.91 however the entire mid to distal LAD was abnormal at 0.80 and repeated at 0.87. On pressure pullback this was a gradual increase over the entire mid to distal LAD past the diagonal 1 branch. Intravascular ultrasound showed main stenosis at the diagonal 1 branch around 40-50% with calcification and otherwise only mild disease. Additionally there was some small amount of bridging of the mid to distal LAD. Given patient has not been on significant antianginals and long area that would need to be stented with more diffuse disease as well as bifurcation lesion decision made to treat medically and is resistant angina may consider PCI. The right radial sheath was removed and a TR band was placed with hemostasis achieved. The patient tolerated the procedure well. Patient was transported back to the post catheterization holding area in stable condition. Conscious Sedation: Patient was monitored under the direct supervision of myself for conscious sedation using Versed and fentanyl for a total duration of 52 minutes HEMODYNAMICS: Aorta: 140/92 LV: 141/2, LVEDP 5 SELECTIVE CORONARY ARTERIOGRAPHY: LEFT MAIN: The left main is a large caliber vessel which bifurcates into the LAD and circumflex. There is no significant stenosis. LEFT ANTERIOR DESCENDING CORONARY ARTERY: LAD is a large caliber vessel which wraps around to the apex. There are mild luminal irregularities and a mid LAD 40-50% stenosis and otherwise diffuse 20-30% stenosis of the mid LAD. There is a small amount of bridging of the mid LAD. Diagonal 1 has a proximal 40-50% stenosis. LEFT CIRCUMFLEX CORONARY ARTERY: Left circumflex is a moderate caliber vessel with proximal 20% stenosis, OM1 40% stenosis and AV groove branch 40-50% stenosis. RIGHT CORONARY ARTERY: The right coronary artery is a large caliber vessel which gives off a PDA and PLV branch and is the dominant vessel. There is mild proximal and mid RCA 20-30% stenosis. The PLV is a moderate caliber branch with a sip. Inferior branch with 30-40% PLV stenosis. The PDA has a proximal 40% st enosis and otherwise mild luminal irregularities. FINAL IMPRESSION: 1. Diffuse mild to moderate CAD as described above including mid LAD 40-50% stenosis at the diagonal 1 branch, diagonal 1 40-50% stenosis, OM1 40% stenosis, PLV 30-40% stenosis in PDA 40% stenosis. 2. Low normal left sided filling pressures 3. Abnormal iFR LAD with diffuse gradient across mid to distal LAD. Boderline abnormal iFR small caliber AV groove circumflex PLAN: 1. Aggressive risk factor modification per most recent ACC/AHA guidelines. 2. Patient with typical angina symptoms however coronary arteries with more moderate appearing 40-50% disease. There is abnormal iFR in the distribution of LAD however diffuse disease and this would require long stenting across the diagonal 1 branch. Therefore attempt medical therapy with antianginals. If having continued typical angina may consider further assessment about PCI.
[2024-04-08] MEDS: METOPROLOL SUCCINATE (ER) 25 MG TAB.ER.24H PO SCH (18:29)
[2024-04-08] MEDS: ISOSORBIDE MONONITRATE ER 30 MG TAB.ER.24H PO SCH (18:29)
[2024-04-08] MEDS: ATORVASTATIN 80 MG TAB PO SCH (20:34)
[2024-04-09] MEDS: PANTOPRAZOLE 40 MG TABLET PO SCH (05:55)
[2024-04-09] MEDS ORDERED: HEPARIN SODIUM,PORCINE 10,000 UNIT in SODIUM CHLORIDE 0.9% 1,000 ML IRRIGATION PRN (07:00)
[2024-04-09] MEDS ORDERED: HEPARIN SODIUM,PORCINE (1 ML) 2,500 UNIT in SODIUM CHLORIDE 0.9% 250 ML IRRIGATION PRN (07:00)
[2024-04-09 07:27] LABS: HCT 38.9 % (39.0-53.0); HGB 13.4 gm/dL (13.0-17.5); MCH 30.7 pg (25.0-35.0); MCHC 34.5 g/dL (31.0-37.0); MCV 89.2 fL (80.0-100.0); Mean Platelet Volume 8.4; Platelet Count 192 k/uL (150-450); RBC 4.37 m/uL (4.30-5.90); WBC 5.8 k/uL (3.8-10.6)
[2024-04-09] MEDS: ASPIRIN 81 MG PO SCH (08:40)
[2024-04-09] MEDS: hydroCHLOROthiazide 25 MG TAB PO SCH (08:41)
[2024-04-09] MEDS: VALSARTAN 160 MG TAB PO SCH (08:41)
[2024-04-09] MEDS ORDERED: ASPIRIN 325 MG TAB PO SCH (09:00)
[2024-04-09 09:57] LABS: ALT 29 U/L (4-49); AST 22 U/L (17-59); African American GFR (CKD) >90 (>60 ml/min/1.73 sqM); Albumin 3.5 g/dL (3.5-5.0); Alkaline Phosphatase 69 U/L (38-126); Anion Gap 6 mmol/L; Blood Urea Nitrogen 21 mg/dL (9-20); Calcium 8.4 mg/dL (8.4-10.2); Carbon Dioxide 26 mmol/L (22-30); Chloride 103 mmol/L (98-107); Glucose 262 mg/dL (74-99); Magnesium 2.1 mg/dL (1.6-2.3); Non-African American GFR(CKD) >90 (>60 ml/min/1.73 sqM); Potassium 4.5 mmol/L (3.5-5.1); Sodium 135 mmol/L (137-145); Total Bilirubin 0.7 mg/dL (0.2-1.3); Total Protein 5.7 g/dL (6.3-8.2)
--- NOTE | 2024-04-09 13:19 | P.PN ---
Subjective HISTORY OF PRESENT ILLNESS: This is a 64-year-old male with past medical history of hypertension, GERD, obstructive sleep apnea on CPAP. Patient denies previous cardiac history and does not follow with a court supervisor. Patient came into the hospital as an outpatient for Cardiolite stress test which came back abnormal. Patient did experience chest pain during testing which worsened as the test progressed. Chest pain lessens when he was off the treadmill. He states the chest pain has been going on for the past 5 to 6 months and was much more severe during the holidays. He states his PCP set him up for a stress test and also to follow-up with the pulmonary doctor. Due to abnormal stress test, patient was sent to the emergency center for further evaluation. Discussed with patient option of cardiac catheterization which she is willing to move forward with today. Blood pressure 163/90, heart rate 97, pulse ox 98% on room air. Patient has remote history of tobacco use. -EKG: Sinus rhythm with nonspecific changes. -Chest x-ray: No acute process -Laboratory studies: CBC, INR, electrolytes and renal function are normal. Troponin negative x 1. Liver function test are normal. -Home cardiac medications: Valsartan/hydrochlorothiazide 160-25 mg daily. 04/09/2024 Patient examined this morning at the bedside. He is status post cardiac catheterization with Dr. Barnett yesterday revealing mid LAD 40 to 50% stenosis at the diagonal 1 branch, diagonal 140 to 50% stenosis, OM 140% stenosis, PLV 30 to 40% stenosis and PDA 40% stenosis. Abnormal IFR LAD with diffuse gradient across mid to distal LAD. Borderline abnormal IFR small caliber AV groove circumflex. Medical management was recommended with possibility of PCI if pat ient continued to have typical anginal symptoms. Patient states he has not had any further episodes of chest pain or pressure. He denies any shortness of breath. Vital signs are stable. 2D echo is pending. PHYSICAL EXAM: VITAL SIGNS: Reviewed. GENERAL: Well-developed in no acute distress. NECK: Supple. No JVD or thyromegaly LUNGS: Respirations even and unlabored. Lungs essentially clear to auscultation bilaterally. HEART: Regular rate and rhythm. S1 and S2 heard. EXTREMITIES: Normal range of motion. No clubbing or cyanosis. Peripheral pulses intact. No lower extremity edema ASSESSMENT: Chest pain with abnormal stress test status post cardiac catheterization as above, medical management recommended History of hypertension Morbid obesity with BMI of 43 PLAN: Continue current cardiac medications 2D echo pending. Await results. Patient may be discharged home today from a cardiac standpoint pending echo results Nurse practitioner note has been reviewed by physician. Signing provider agrees with the documented findings, assessment, and plan of care documented by CLIENT ADVOCATE as a scribe. Objective - Vital Signs Vital signs: Vital Signs Temp 98.4 F 04/09/24 11:50 Pulse 81 04/09/24 12:00 Resp 18 04/09/24 12:00 BP 137/63 04/09/24 12:00 Pulse Ox 95 04/09/24 12:00 FiO2 Intake & Output 04/08/24 04/09/24 04/09/24 18:59 06:59 18:59 Intake Total 330 780 Balance 330 780 Weight 136.985 kg 127.3 kg Intake: IV 330 Oral 780 Other: Voiding Method Toilet Toilet # Voids 1 1 2 - Labs CBC & Chem 7: 04/09/24 07:00 04/09/24 09:18 Labs: Abnormal Lab Results - Last 24 Hours (Table) 04/08/24 04/08/24 04/09/24 Range/Units 10:16 17:37 07:00 Hct 38.9 L (39.0-53.0) % APTT 33.4 H (22.0-30.0) sec Sodium (137-145) mmol/L BUN (9-20) mg/dL Glucose (74-99) mg/dL Hemoglobin A1c 8.1 H (<=6.0) % Total Protein (6.3-8.2) g/dL 04/09/24 Range/Units 09:18 Hct (39.0-53.0) % APTT (22.0-30.0) sec Sodium 135 L (137-145) mmol/L BUN 21 H (9-20) mg/dL Glucose 262 H (74-99) mg/dL Hemoglobin A1c (<=6.0) % Total Protein 5.7 L (6.3-8.2) g/dL
[2024-04-09 15:13] LABS: Chol/HDL Ratio 5.17 Ratio; LDL Cholesterol,Calculated 92.8 mg/dL (0.0-131.0)
[2024-04-09] MEDS ORDERED: DEXTROSE 50% SYRINGE 50 ML IVP PRN ×2 (15:19)
--- NOTE | 2024-04-09 15:26 | P.PN ---
Subjective Progress Note Date: 04/09/24 Hospital Course: Patient is a pleasant 64-year-old male with a past medical history of hypertension, GERD, rheumatoid arthritis, obstructive sleep apnea. Presented to the emergency department as sent by supervisor felting, Dr. Barnett secondary to patient's reports of chest pain and exertional dyspnea and failing outpatient stress test this morning. Patient was undergoing outpatient stress test secondary to intermittent exertional shortness of breath and chest pain ongoing over the past 4 months. Patient reports significant family history of cardiac disease including having a father who in his 50s from heart attack and brother whom underwent bypass surgery. Patient reports pain stays to midsternal chest accompanied by shortness of breath with any exertion, but improves/resolves with rest. He denies having any headache, lightheadedness, dizziness, cough or congestion, palpitations, nausea, vomiting, or experiencing any numbness/tingling/weakness/swelling in his extremities. Upon arrival to our facility, patient underwent evaluation in the emergency department. Vital signs upon arrival show blood pressure 163/90, heart rate 97, respiratory rate 18, temp 98.8 F, and SpO2 of 98% on room air. EKG was completed showing normal sinus rhythm at 94 bpm. Completed negative for acute cardiopulmonary process. Labs completed and reviewed. CBC unremarkable. Coagulation profile normal findings. BMP normal findings. Blood glucose 146. Magnesium 2.0. Liver profile unremarkable. Troponin was negative at less than 0.012. TSH 2.830. Patient was started on heparin infusion for treatment of unstable angina and admitted under our services with consultation to cardiology. Cardiology evaluated and took patient for cardiac cath on 04/08/2024. Cardiac cath reporting diffuse mild to moderate CAD involving mid LAD, left circumflex, and right coronary artery. Cardiology recommending aggressive risk factor modification stating patient with typical angina symptoms and to attempt medication therapy with antianginals and will reevaluate. Physical exam: Patient was seen and fully evaluated at bedside this morning. He reports currently being free from any chest pain or shortness of breath and denies any other complaints at this time. Discussed with patient and RN for patient to ambulate unit to ensure patient is free from exertional chest pain and shortness of breath this morning after medication changes were made. Vital signs reviewed and stable. General: Nontoxic, no distress and appears stated age. Derm: Skin warm and dry, normal coloration for ethnicity. Head: Atraumatic, normocephalic and symmetric. Eyes: EOM's intact, no lid lag, and anicteric sclera Mouth: no lip lesions, mucus membranes moist Cardiovascular: regular rate and rhythm with normal S1S2, no murmur, positive posterior tibial pulses bilaterally, and cap refill < 2 seconds. Lungs: Respirations even, regular, and unlabored on room air. Lungs CTA bilaterally, no rhonchi, no rales, no wheezing, and no accessory muscle usage. Abdominal: soft, nontender to palpation, no guarding, no appreciable organomegaly Ext: ROM intact. No gross muscle atrophy, no edema, no contractures Neuro: Speech clear, face symmetrical and CN II-XII grossly intact with no noted focal neuro deficits Psych: Alert and oriented to person, place, time, and situation. Appropriate and pleasant affect. Assessment and Plan of Care: Unstable angina Exertional chest pain and shortness of breath, secondary to above Hypertension -Cardiology following and took patient for cardiac cath on 04/08/2024. Cardiac cath reporting diffuse mild to moderate CAD involving mid LAD, left circumflex, and right coronary artery. Cardiology recommending aggressive risk factor modification stating patient with typical angina symptoms and to attempt medication therapy with antianginals and will reevaluate. -Telemetry monitoring -Encourage ambulation, monitor for improvement in exertional chest pain/shortness of breath. -Continue cardiac medication regimen with aspirin 81 mg daily, atorvastatin 80 mg nightly, hydrochlorothiazide 25 mg daily, isosorbide mononitrate 30 mg daily, metoprolol 25 mg daily, valsartan 160 mg daily and as needed nitroglycerin 0.4 mg sublingual every 5 minutes as needed for chest pain x up to 3 doses. -Lipid profile unremarkable with the exception of low HDL of 28.60. Hemoglobin A1c elevated 8.1%. -Awaiting echocardiogram to be completed. Hyperglycemia, newly diagnosed type 2 diabetes mellitus -Blood glucose this morning 262 and hemoglobin A1c is 8.1%. Patient placed on glycemic protocol with NovoLog sliding scale and will plan for discharge home on metformin 500 mg twice daily. Patient to be provided with diabetic supplies prior to discharge. GERD -Continue Protonix 40 mg daily. Rheumatoid arthritis -Hold sulfasalazine pending further recommendations from cardiology. Data and imaging reviewed: -Morning labs reviewed. CBC unremarkable. BMP showing mild prerenal azotemia with BUN of 21 otherwise normal findings. Blood glucose elevated at 262. Hemoglobin A1c elevated at 8.1%. Lipid profile unremarkable with exception of low HDL of 28.60. -Vital signs reviewed. Blood pressure 137/54, heart rate 79, respiratory rate 18, temp 98.0 F, and SpO2 of 97% on room air. CODE STATUS: Full code DVT prophylaxis: Heparin Anticipated discharge date: Pending completion of echocardiogram and cardiac clearance Anticipated discharge place: Home Patient was seen independently by Nurse Practitioner. This document was prepared using [employer] dictation software. Please allow for errors in patient registrar while rare they do occur. Yasmani Elkins NP rendered care for this patient independently, reviewed the findings and plan as documented in the note above and agree with plan. I did not physically speak with or examine the patient on this date. Objective - Vital Signs Vital signs: Vital Signs Temp 97.8 F 04/08/24 20:34 Pulse 64 04/09/24 03:26 Resp 19 04/09/24 03:26 BP 113/64 04/09/24 03:26 Pulse Ox 97 04/09/24 08:13 FiO2 Intake & Output 04/08/24 04/09/24 04/09/24 18:59 06:59 18:59 Intake Total 330 Balance 330 Weight 136.985 kg 127.3 kg Intake: IV 330 Other: Voiding Method Toilet # Voids 1 1 - Labs CBC & Chem 7: 04/09/24 07:00 04/09/24 09:18 Labs: Abnormal Lab Results - Last 24 Hours (Table) 04/08/24 04/08/24 04/08/24 Range/Units 10:16 10:16 17:37 Hct (39.0-53.0) % APTT 33.4 H (22.0-30.0) sec Glucose 146 H (74-99) mg/dL Hemoglobin A1c 8.1 H (<=6.0) % 04/09/24 Range/Units 07:00 Hct 38.9 L (39.0-53.0) % APTT (22.0-30.0) sec Glucose (74-99) mg/dL Hemoglobin A1c (<=6.0) %
[2024-04-09 16:37] LABS: Glucose,Whole Blood 161 mg/dL (70-110)
[2024-04-09] MEDS: INSULIN ASPART (NovoLOG) 100 UNIT/ML VIAL SQ SCH (16:52)
[2024-04-09 20:27] LABS: Glucose,Whole Blood 169 mg/dL (70-110)
[2024-04-10 05:57] LABS: Glucose,Whole Blood 183 mg/dL (70-110)
[2024-04-10 10:19] VITALS: BP 143/68; PULSE 79; RESP 18; TEMP 98.2
--- NOTE | 2024-04-10 10:29 | PN ---
PROGRESS NOTE SUBJECTIVE: A 64-year-old gentleman, who is admitted to hospital with angina and had an abnormal stress test. He underwent cardiac catheterization and was advised medical therapy because of diffuse disease involving mid to distal LAD. He had an echocardiogram, whose results were not available yesterday due to which the discharge had been held. Apparently, the echo had been read by the residential lawn specialist in a timely fashion, but the echo report due to problems associated with the electronic medical records has not been transferred into the patient's record and hence was not available. This morning, the echo report had been obtained and the patient will be discharged home. MEDICATIONS: He is currently on, 1. Aspirin. 2. Lipitor. 3. Toprol. 4. Diovan. 5. Imdur. Denies any chest pain. PHYSICAL EXAMINATION: GENERAL: Comfortable at rest. VITAL SIGNS: Stable. CHEST: Reveals good air entry bilaterally. HEART: Reveals first and second heart sounds. No gallop. EXTREMITIES: Did not reveal any edema. ASSESSMENT AND PLAN: Coronary artery disease, on medical therapy. The patient will continue current medications, home today, and follow up with Dr. Barnett. MMSTEPHIEL / IJN: [id number] /
--- NOTE | 2024-04-10 13:25 | CA ---
Transthoracic Echo Report Name: Jessee Marrero Age: 64 Gender: M : 1960 Exam Date: 04/09/2024 08:32 Exam Location: [facility] Ht (in): 70 Wt (lb): 302 Ordering Physician: Yasmani Elkins Attending/Referring Phys: Crown Attacher Becky Negrete RDCS Procedure CPT: Indications: exertional CP exrtional dyspnea failed OP stress Cardiac Hx: Technical Quality: Technically difficult study Contrast 1: Definity Total Dose (mL): 1 Contrast 2: Total Dose (mL): MEASUREMENTS (Male / Female) Normal Values 2D ECHO LV Diastolic Diameter PLAX 4.7 cm 4.2 - 5.9 / 3.9 - 5.3 cm LV Systolic Diameter PLAX 3.0 cm IVS Diastolic Thickness 1.1 cm 0.6 - 1.0 / 0.6 - 0.9 cm LVPW Diastolic Thickness 1.0 cm 0.6 - 1.0 / 0.6 - 0.9 cm LV Relative Wall Thickness 0.5 LVOT Diameter 2.3 cm LV Diastolic Volume MOD BP 114.4 cm??? 67 - 155 / 56 - 104 cm??? LV Systolic Volume MOD BP 46.7 cm??? 22 - 58 / 19 - 49 cm??? LV Ejection Fraction MOD BP 59.2 % >= 55 % LV Cardiac Index MOD BP 1905.3 cm???/min???m??? LV Diastolic Volume MOD 4C 130.8 cm??? LV Systolic Volume MOD 4C 51.3 cm??? LV Ejection Fraction MOD 4C 60.8 % LV Cardiac Index MOD 4C 2237.0 cm???/min???m??? LV Diastolic Length 4C 9.3 cm LV Systolic Length 4C 7.8 cm LV Diastolic Volume MOD 2C 100.1 cm??? LV Systolic Volume MOD 2C 41.7 cm??? LV Ejection Fraction MOD 2C 58.3 % LV Cardiac Index MOD 2C 1640.8 cm???/min???m??? LV Diastolic Length 2C 9.3 cm LV Systolic Length 2C 7.5 cm LA Volume 56.7 cm??? 18 - 58 / 22 - 52 cm??? LA Volume Index 21.2 cm???/m??? 16 - 28 cm???/m??? Ascending Aorta Diameter 3.7 cm DOPPLER AV Peak Velocity 135.0 cm/s AV Peak Gradient 7.3 mmHg AV Mean Velocity 93.8 cm/s AV Mean Gradient 4.0 mmHg AV Velocity Time Integral 24.0 cm LVOT Peak Velocity 118.7 cm/s LVOT Peak Gradient 5.6 mmHg LVOT Velocity Time Integral 24.8 cm LVOT Stroke Volume 107.1 cm??? LVOT Stroke Volume Index 43.1 ml/m??? LVOT Cardiac Index 3012.2 cm???/min???m??? AV Area Cont Eq vti 4.5 cm??? AV Area Cont Eq pk 3.8 cm??? MV Area PHT 4.1 cm??? Mitral E Point Velocity 76.9 cm/s Mitral A Point Velocity 62.4 cm/s Mitral E to A Ratio 1.2 MV Deceleration Time 187.0 ms PV Peak Velocity 94.7 cm/s PV Peak Gradient 3.6 mmHg FINDINGS Left Ventricle Left ventricular ejection fraction is estimated at 60 %. Mildly increased septal wall thickness. Left ventricular cavity size normal. No obvious regional wall motion abnormalities. Right Ventricle Right ventricle not well visualized. Unable to estimate the right ventricular systolic pressure. Right Atrium Right atrium not well visualized. Left Atrium Normal left atrial size. Mitral Valve Structurally normal mitral valve. No mitral stenosis, regurgitation or prolapse. Aortic Valve Aortic valve not well visualized. Appears to be trileaflet. No aortic valve stenosis or regurgitation. Tricuspid Valve Structurally normal tricuspid valve. No tricuspid stenosis, regurgitation or prolapse. Pulmonic Valve Pulmonic valve not well visualized. No pulmonic stenosis. No pulmonic regurgitation. Pericardium No pericardial effusion. Aorta Normal size aortic root and proximal ascending aorta. CONCLUSIONS Left ventricular ejection fraction 60% Mildly increased left ventricular wall thickness No mitral regurgitation No pericardial effusion Previewed by: Dr. Julián Barnett DO (Electronically Signed) Final Date: 09 April 2024 12:48
--- NOTE | 2024-04-10 18:53 | P.DS ---
Providers Date of admission: 04/08/24 10:23 Expected date of discharge: 04/10/24 Attending physician: Edil Black Consults: 04/08/24 09:51 Consult Physician Routine Consulting Provider: Julián Barnett Consult Reason/Comments: acs Do you want consulting provider notified?: Already Contacted [facility] Course: Discharge Diagnosis: Unstable angina Hyperglycemia, newly diagnosed type 2 diabetes mellitus GERD Rheumatoid arthritis Hospital Course: Patient is a pleasant 64-year-old male with a past medical history of hypertension, GERD, rheumatoid arthritis, obstructive sleep apnea. Presented to the emergency department as sent by cement conveyor operator, Dr. Barnett secondary to patient's reports of chest pain and exertional dyspnea and failing outpatient stress test this morning. Patient was undergoing outpatient stress test secondary to intermittent exertional shortness of breath and chest pain ongoing over the past 4 months. Patient reports significant family history of cardiac disease including having a father who in his 50s from heart attack and brother whom underwent bypass surgery. Patient reports pain stays to midsternal chest accompanied by shortness of breath with any exertion, but improves/resolves with rest. He denies having any headache, lightheadedness, dizziness, cough or congestion, palpitations, nausea, vomiting, or experiencing any numbness/tingling/weakness/swelling in his extremities. Upon arrival to our facility, patient underwent evaluation in the emergency department. Vital signs upon arrival show blood pressure 163/90, heart rate 97, respiratory rate 18, temp 98.8 F, and SpO2 of 98% on room air. EKG was completed showing normal sinus rhythm at 94 bpm. Completed negative for acute cardiopulmonary process. Labs completed and reviewed. CBC unremarkable. Coagulation profile normal findings. BMP normal findings. Blood glucose 146. Magnesium 2.0. Liver profile unremarkable. Troponin was negative at less than 0.012. TSH 2.830. Patient was started on heparin infusion for treatment of unstable angina and admitted under our services with consultation to cardiology. Cardiology evaluated and took patient for cardiac cath on 04/08/2024. Cardiac cath reporting diffuse mild to moderate CAD involving mid LAD, left circumflex, and right coronary artery. Cardiology recommending aggressive risk factor modification stating patient with typical angina symptoms and to attempt medication therapy with antianginals and will reevaluate. Echocardiogram completed showing a preserved EF of 60%. Patient ambulated in unit denies having any exertional chest pain or shortness of breath at this time. Patient cleared from cardiac perspective and is medically optimized for discharge at this time. Continue cardiac medication regimen with aspirin 81 mg daily, atorvastatin 80 mg nightly, hydrochlorothiazide 25 mg daily, isosorbide mononitrate 30 mg daily, metoprolol 25 mg daily, valsartan 160 mg daily and as needed nitroglycerin 0.4 mg sublingual every 5 minutes as needed for chest pain x up to 3 doses. Hemoglobin A1c was also elevated at 8.1%. Patient reports previous inability to tolerate metformin. He was discharged home with glucometer and testing supplies along with prescription for glipizide 5 mg daily. Patient strongly encouraged to follow heart healthy and carb consistent diet. Patient to follow-up outpatient with PCP in 1 to 2 days and with cement conveyor operator in 1 week. Physical exam: Vital signs reviewed and stable. General: Nontoxic, no distress and appears stated age. Derm: Skin warm and dry, normal coloration for ethnicity. Head: Atraumatic, normocephalic and symmetric. Eyes: EOM's intact, no lid lag, and anicteric sclera Mouth: no lip lesions, mucus membranes moist Cardiovascular: regular rate and rhythm with normal S1S2, no murmur, positive posterior tibial pulses bilaterally, and cap refill < 2 seconds. Lungs: Respirations even, regular, and unlabored on room air. Lungs CTA bilaterally, no rhonchi, no rales, no wheezing, and no accessory muscle usage. Abdominal: soft, nontender to palpation, no guarding, no appreciable organomegaly Ext: ROM intact. No gross muscle atrophy, no edema, no contractures Neuro: Speech clear, face symmetrical and CN II-XII grossly intact with no noted focal neuro deficits Psych: Alert and oriented to person, place, time, and situation. Appropriate and pleasant affect. A total of 35 minutes of time were spent preparing this complex discharge summary. Pt was discharged on 04/10/2024 at 9:56 AM. Patient was seen independently by Nurse Practitioner. This document was prepared using [employer] dictation software. Please allow for errors in catalyst unit operator while rare they do occur. Yasmani Elkins NP rendered care for this patient independently, reviewed the findings and plan as documented in the note above. I did not physically speak with or examine the patient on this date. Patient Condition at Discharge: Stable Plan - Discharge Summary Discharge Rx Participant: No New Discharge Prescriptions: New Aspirin 81 mg PO DAILY 30 Days #30 tab Nitroglycerin Sl Tabs [Nitrostat] 0.4 mg SUBLINGUAL Q5M PRN #30 tab PRN Reason: Chest Pain Metoprolol Succinate (ER) [Toprol XL] 25 mg PO DAILY 30 Days #30 tab glipiZIDE 5 mg PO DAILY 30 Days #30 tablet Isosorbide Mononitrate ER [Imdur] 30 mg PO DAILY 30 Days #30 tab Atorvastatin [Lipitor] 80 mg PO HS 30 Days #30 tab Continue Valsartan/Hydrochlorothiazide [Diovan Hct 160-25 mg Tablet] 1 tab PO DAILY Omeprazole 20 mg PO DAILY sulfaSALAzine [sulfaSALAzine Dr] 500 mg PO BID Discharge Medication List Valsartan/Hydrochlorothiazide [Diovan Hct 160-25 mg Tablet] 1 tab PO DAILY 08/25/14 [History] Omeprazole 20 mg PO DAILY 12/12/23 [History] sulfaSALAzine [sulfaSALAzine Dr] 500 mg PO BID 04/08/24 [History] glipiZIDE 5 mg PO DAILY 30 Days #30 tablet 04/09/24 [Rx] Aspirin 81 mg PO DAILY 30 Days #30 tab 04/10/24 [Rx] Atorvastatin [Lipitor] 80 mg PO HS 30 Days #30 tab 04/10/24 [Rx] Isosorbide Mononitrate ER [Imdur] 30 mg PO DAILY 30 Days #30 tab 04/10/24 [Rx] Metoprolol Succinate (ER) [Toprol XL] 25 mg PO DAILY 30 Days #30 tab 04/10/24 [Rx] Nitroglycerin Sl Tabs [Nitrostat] 0.4 mg SUBLINGUAL Q5M PRN #30 tab 04/10/24 [Rx] Follow up Appointment(s)/Referral(s): Pawan Sood MD [Primary Care Provider] - 1-2 days (CALL AND MAKE BOAZ!) Julián Barnett DO [STAFF PHYSICIAN] - 04/15/24 9:15 am Patient Instructions/Handouts: Acute Coronary Syndrome (DC), Heart Catheterization (DC), After Radial Heart Catheterization (GEN) Activity/Diet/Wound Care/Special Instructions: Activity: As tolerated. Take breaks as needed. Diet: Heart healthy and carb consistent diet. Avoid salts, or foods with hidden salts such as canned or boxed foods and frozen dinners. Extra salt makes your heart work harder and traps the fluid in your body for longer. Special Instructions: Take all of your medications as directed and remember to keep all of your doctor's appointments and follow-up as needed. As discussed your hemoglobin A1c is again elevated and you have been started on glipizide 5 mg daily. Is important to check your blood glucose levels daily and document these findings and a daily log to bring with you to your next doctor's appointment as your PCP may consider increasing dose of medication and/or adding on additional medications for management. Thank you for allowing us to participate in your care, it was truly a pleasure having you for our patient!!! . Discharge/Stand Alone Forms: Work/School Release Discharge Disposition: HOME SELF-CARE
== END 2024-04-10 10:57 | disposition home or self-care (01) | DRG 287 ==
LOC: EC 09:49 → 3SCARD 10:23
PROVIDERS: ADMIT Student in an Organized Health Care Education/Training Program; ATTEND Student in an Organized Health Care Education/Training Program
PROC: B2111ZZ Fluoroscopy of Multiple Coronary Arteries using Low Osmolar Contrast (ICD-10-PCS; principal; 2024-04-08 14:50)
PROC: 4A023N7 Measurement of Cardiac Sampling and Pressure, Left Heart, Percutaneous Approach (ICD-10-PCS; 2024-04-08 14:50)
PROC: 4A033BC Measurement of Arterial Pressure, Coronary, Percutaneous Approach (ICD-10-PCS; 2024-04-08 14:50)
DX: I25.110 Atherosclerotic heart disease of native coronary artery with unstable angina pectoris (principal); E11.65 Type 2 diabetes mellitus with hyperglycemia; Z68.41 Body mass index [BMI] 40.0-44.9, adult; M06.9 Rheumatoid arthritis, unspecified; I10 Essential (primary) hypertension; E66.01 Morbid (severe) obesity due to excess calories; K21.9 Gastro-esophageal reflux disease without esophagitis; G47.33 Obstructive sleep apnea (adult) (pediatric); Z82.49 Family history of ischemic heart disease and other diseases of the circulatory system; Z87.891 Personal history of nicotine dependence; Z79.899 Other long term (current) drug therapy
CPT/HCPCS: 36415; 71046; 80053; 80061; 83036; 83735; 84443; 84484; 85025; 85027; 85610; 85730; 92978; 93005; 93306; 93458; 93799; 94660; 94760; 96365; 96366; 99291

== ENCOUNTER → 2024-04-08 | Outpatient (CLI) | payer BC ==
--- NOTE | 2024-04-08 10:14 | NM ---
EXAMINATION TYPE: NM stress cardiolite complete DATE OF EXAM: 04/08/2024 COMPARISON: NONE CLINICAL INDICATION: Male, 64 years old with history of R07.9 CHEST PAIN; TECHNIQUE: After the intravenous administration of 10.4 mCi Tc 99m Sestamibi - Rest images obtained 55 minutes post injection. The patient exercised using a CLAUDIA protocol and 1 minute prior to peak exercise was injected with 26.4 mCi Tc 99m Sestamibi - Stress images obtained 10 minutes post injecti on. FINDINGS: Targeted heart rate was achieved during performance of the study. Review of stress and rest SPECT jamar ges demonstrates area of stress-induced reversibility involving the apex of the myocardium.. Gated a nalysis shows normal wall motion with an estimated left ventricular ejection fraction of 50 %. IMPRESSION: Findings are compatible with an area of stress-induced reversible ischemia involving the apex of the myocardium. pathology laboratory technologist noted that the patient was sent to the emergency room. [facility], , 04/08/2024 10:12 AM
--- NOTE | 2024-04-08 13:03 | CA ---
Exercise Stress Test Report Name: Jessee Marrero Exam Date: 04/08/2024 09:08 Exam Location: [place] Stress Ht (in): 70 Wt (lb): 300 BSA: 2.48 Ordering Phys: Pawan Sood MD Referring Phys: Pawan Sood MD Technologist: Devon Hoskins Age: 64 Gender: M : 1960 Procedure CPT: Indications: R07.9 CHEST PAIN ICD-10 Codes: Patient History: CHEST PAIN, DIFFICULTY IN BREATHING, HTN, FAMILY HX OF HEART DISEASE Medications: VALSARTAN, OMEPRAZOLE, SULFASALAZINE Meds past 24 hrs: Pretest Chest Pain: STRESS TEST Rayshawn Protocol Exercise Duration (min:sec): 05:[address] Depressions (mm): Angina Score: Woods Score: Resting HR (bpm): 81 Peak HR (bpm): 140 Resting BP (mmHg): 151 / 87 Peak BP (mmHg): 217 / 76 MPHR: 157 Target HR: 133 % MPHR: 89 METS: 7.1 Total Dose: Peak Dose: Atropine: Double Product: 38065 BP Response: Stress Termination: TARGET HR REACHED/MAX EXERTION Stress Symptoms: CHEST TIGHTNESS DURING STRESS TEST Stress Summary: ECG ANALYSIS Resting ECG: Stress ECG: CONCLUSIONS Patient underwent exercise stress Cardiolite with a Rayshawn protocol treadmill stress test. Patient exercised into Stage 2 for a total of 6 minutes reaching a total of 7.1 METS. Patient's maximum heart rate was 140 which represented 89 % age- predicted maximum heart rate. Patient did have chest tightness worse with exertion and improved with rest Stress EKG findings: At baseline patient's EKG showed normal sinus rhythm, normal axis, no significant ST or T wave abnormalities. At peak exercise, EKG showed occasional PVCs, borderline aVR elevation, diffuse 1.5-[address] depressions to 3 aVF and V5 V6. Conclusions: 1. Abnormal stress EKG consistent with ischemia 2. Fair exercise capacity. 3. Chest pain noted with exertion. Clinical correlation recommended. Patient still having minimal chest tightness approximate 20 minutes after exercise and therefore recommended to go to emergency department. Dr. Julián Barnett DO (Electronically Signed) Final Date: 08 April 2024 13:03
== END | disposition home or self-care (01) ==
LOC: RADNMMAIN 07:41
PROVIDERS: ATTEND Family Medicine
DX: R94.31 Abnormal electrocardiogram [ECG] [EKG] (principal); I10 Essential (primary) hypertension; Z82.49 Family history of ischemic heart disease and other diseases of the circulatory system
CPT/HCPCS: 93017; 78452; A9500